=== PATIENT | female | born 1985 | race Caucasian/White ===

== ENCOUNTER → 2018-05-26 12:11 | Outpatient (CLI) | payer OTHER, SELFPAY ==
[2018-05-26 13:15] LABS: Follicle Stimulating Hormone 2.41 mIU/mL
[2018-05-26 13:16] LABS: Luteinizing Hormone 4.74 mIU/mL; Prolactin 17.3 ng/mL (3.0-18.6)
[2018-05-26 13:17] LABS: Free T3, Triiodothyronine Free 3.42 pg/mL (2.77-5.27); Free T4, Direct Thyroxine 1.13 ng/dL (0.78-2.19)
== END ==
PROVIDERS: PCP Physician Assistant Medical
DX: N97.0 Female infertility associated with anovulation (principal)
CPT/HCPCS: 36415; 83001; 83002; 84146; 84439; 84481

== ENCOUNTER → 2018-06-27 17:40 | Outpatient (REF) | payer OTHER, SELFPAY ==
[2018-06-30 17:22] LABS: Progesterone 9.6 ng/mL
== END ==
LOC: LAB 17:40
PROVIDERS: PCP Physician Assistant Medical; Visit Provider Physician Assistant Medical
DX: N97.0 Female infertility associated with anovulation (principal)
CPT/HCPCS: 36415; 84144

== ENCOUNTER → 2018-07-26 16:02 | Outpatient (CLI) | payer OTHER, SELFPAY ==
[2018-07-28 15:32] LABS: Progesterone 18.5 ng/mL
== END ==
PROVIDERS: PCP Physician Assistant Medical
DX: N97.0 Female infertility associated with anovulation (principal)
CPT/HCPCS: 36415; 84144

== ENCOUNTER → 2018-09-07 16:33 | Outpatient (CLI) | payer OTHER, SELFPAY ==
[2018-09-07 17:22] LABS: Add Manual Diff / Slide Review NO; Basophils Absolute Auto 100 /uL (0-100); Basophils Percent Auto 0.6 % (0-2); Eosinophils Absolute Auto 100 /uL (0-450); Eosinophils Percent Auto 0.7 % (2-4); Hematocrit 35.5 % (36-46); Lymphocytes Absolute Auto 2400 /uL (1100-4500); Lymphocytes Percent Auto 18.3 % (25-40); Mean Corpuscular HGB Conc 33.8 % (30-36); Mean Corpuscular Hemoglobin 29.4 PG (26-34); Monocytes Absolute Auto 600 /uL (0-900); Monocytes Percent Auto 4.7 % (3-14); Neutrophils Absolute Auto 10000 /uL (1500-7000); Neutrophils Percent Auto 75.7 % (50-75); Platelet Count 411 X10^3/uL (150-400); Red Blood Cell Count 4.08 X10^6/uL (4.0-5.2); Red Cell Distribution Width 12.6 % (11.6-14.8); White Blood Cell Count 13.3 X10^3/uL (4.5-11.0)
[2018-09-07 17:54] LABS: Appearance Urine UA CLEAR; Bilirubin Urine UA NEGATIVE (NEGATIVE); Color Urine UA YELLOW; Glucose Urine UA NEGATIVE (Negative); Ketones Urine UA NEGATIVE (NEGATIVE); Leukocyte Esterase Urine UA TRACE (NEGATIVE); Nitrite Urine UA NEGATIVE (Negative); Occult Blood Urine UA NEGATIVE (Negative); Protein Urine UA NEGATIVE (Negative); Urobilinogen Urine UA 0.2 E.U./dL (0.2)
[2018-09-07 18:03] LABS: RBC Urine None Seen (0-5/HPF)
[2018-09-07 18:05] LABS: Bacteria Urine Moderate (10-30); Squamous Epithelial Cell Urine 0-1 /HPF (0-5/HPF); WBC Urine 1-5/HPF (0-5/HPF)
[2018-09-07 18:28] LABS: Hepatitis B Surface Antigen NEGATIVE s/c (NEGATIVE)
[2018-09-07 18:29] LABS: HIV 1 and 2 Antibody NEGATIVE (NEGATIVE); Hep C Virus Ab w/Reflex Quant NEGATIVE s/c (NEGATIVE); Rubella Antibody IgG 9.9 IU/mL (>15)
[2018-09-07 19:23] LABS: Urine N gonorrhoeae NOT DETECTED
[2018-09-07 19:29] LABS: Urine Chlamydia NOT DETECTED
[2018-09-09 13:22] LABS: RPR Screen Nonreactive (Nonreactive)
== END ==
PROVIDERS: PCP Physician Assistant Medical; Visit Provider Specialist
DX: Z34.01 Encounter for supervision of normal first pregnancy, first trimester (principal); Z11.3 Encounter for screening for infections with a predominantly sexual mode of transmission; Z11.8 Encounter for screening for other infectious and parasitic diseases; Z3A.09 9 weeks gestation of pregnancy
CPT/HCPCS: 36415; 80055; 81003; 81015; 86703; 86787; 86803; 86850; 86900; 86901; 87086; 87491; 87591

== ENCOUNTER → 2018-11-01 09:02 | Outpatient (CLI) | payer OTHER, SELFPAY ==
[2018-11-06 12:47] LABS: AFP, Serum 36.4 ng/mL; Calc Gestational Age 17.3; Cigarette Smoker N; Donated Egg NOT GIVEN; Donor Egg Age NOT GIVEN; Estriol, Free 0.86 ng/mL; Inhibin A, Dimeric 191 pg/mL; Maternal Weight 156 lbs; Number of Fetuses 1; Previous Pregnancy Down Syndro NOT GIVEN; hCG, MoM 2.74
== END ==
PROVIDERS: Visit Provider Specialist
DX: Z34.02 Encounter for supervision of normal first pregnancy, second trimester (principal); Z3A.17 17 weeks gestation of pregnancy
CPT/HCPCS: 36415; 82105; 82677; 84702; 86336

== ENCOUNTER → 2018-11-20 14:46 | Outpatient (CLI) | payer OTHER, SELFPAY ==
--- NOTE | 2018-11-20 14:50 | DI.US.S_ITS ---
PROCEDURE: US OB >= 14 WEEKS FETUS INDICATIONS: ANATOMY SCAN OUTSIDE/PRIOR DATING DATA: Last menstrual period (LMP): 07/03/18. LMP-based estimated date of delivery (GRACE): 04/09/19. First dating scan (date and location): 09/07/18. Estimated date of delivery (GRACE) from first dating scan: 04/10/19. TECHNIQUE: Real-time scanning was performed of the fetus, with image documentation and biometric measurements. Endovaginal scanning: No COMPARISON: [facility], , OB >= 14 WEEKS FETUS, 11/01/2018, 8:53. FINDINGS: General: A single living intrauterine gestation is present. Presentation: Breech. Placenta: Placental position is anterior, without previa. Amniotic fluid index: 13.3 cm, normal range is 5-24 cm. heart rate: 145 beats per minute. Maternal cervical canal: 3.7 cm long. Normal lower limit is 2.5 cm biometrics: Biparietal diameter: 20 weeks 3 days Head circumference: 20 weeks 1 day Abdominal circumference: 20 weeks 5 days Femur length: 20 weeks 0 days Estimated gestational age from initial scan: 19 weeks 6 days Composite gestational age from present scan: 20 weeks 2 days Estimated weight and percentile: 347 g; 73 percentile Measurement variability for biometric dating: +/- 7 days from 14 weeks to 15 weeks 6 days gestation, +/- 10 days from 16 weeks to 21 weeks 6 days gestation, +/- 2 weeks from 22 weeks to 27 weeks 6 days gestation, +/- 3 weeks for 28 weeks gestation or later. weight reference: 4500 g or EFW >90/95% is considered macrosomia or large for gestational age. EFW <10% is small for gestational age. EFW 5% or less is considered intra-uterine growth restriction. Anatomic survey: Neuro: Ventricles are non-dilated at less than 10 mm. Cisterna magna is normal at 3-11 mm. Cerebellum is normal in size and morphology. Nuchal skin fold: Normal at less than 6 mm between 14-21 weeks gestational age. Face: Nose and lips, facial profile are normal. Spine: No evidence for spina bifida. Heart: 4-chambered heart is present, with normal ventricular outflow tracts. Diaphragm: Diaphragm is intact. Stomach: Left-sided stomach is present. Kidneys: No hydronephrosis. Normal is less than 5 mm in 2nd trimester, less than 7 mm in 3rd trimester. Cord: 3-vessel cord has orthotopic insertion. Bladder: Normal in size. Extremities: All 4 extremities identified. Posterior intramural maternal fibroid measuring 3.3 x 3.0 cm IMPRESSION: 1. Single living IUP redemonstrated and interval growth is normal. 2. Normal anatomic survey. 3. Mid posterior intramural maternal fibroid. Dictated by: Rene DURAN Interpreted: Loida Salcido MD on 11/20/2018 at 16:29 Approved by: Loida Salcido M.D. on 11/20/2018 at 17:04
== END ==
PROVIDERS: Visit Provider Specialist
DX: Z34.02 Encounter for supervision of normal first pregnancy, second trimester (principal); Z33.1 Pregnant state, incidental; Z3A.19 19 weeks gestation of pregnancy
CPT/HCPCS: 76811

== ENCOUNTER → 2018-12-21 11:08 | Outpatient (CLI) | payer OTHER, SELFPAY ==
[2018-12-21 12:29] LABS: Hematocrit 33.2 % (36-46); Hemoglobin 11.2 g/dL (12.0-16.0)
[2018-12-21 13:41] LABS: GTT (PREG) 1 Hour PP 50gm Dose 98 mg/dL (76-139)
== END ==
PROVIDERS: Visit Provider Specialist
DX: Z34.02 Encounter for supervision of normal first pregnancy, second trimester (principal); Z3A.24 24 weeks gestation of pregnancy
CPT/HCPCS: 82950; 85014; 85018

== ENCOUNTER → 2019-03-21 12:20 | Outpatient (CLI) | payer OTHER, SELFPAY ==
[2019-03-22 10:39] LABS: Strep Grp B PCR NEG for Grp B Strep
== END ==
PROVIDERS: Visit Provider Specialist
DX: Z34.03 Encounter for supervision of normal first pregnancy, third trimester (principal); Z3A.36 36 weeks gestation of pregnancy
CPT/HCPCS: 87653

== ENCOUNTER 2019-04-12 10:48 | Outpatient (CLI) | payer OTHER, SELFPAY ==
--- NOTE | 2019-04-12 11:12 | P.TNLD_ITS ---
Visit Information Visit Information Date of evaluation: 04/12/19 Primary OB Provider: Juanita Gunter Reason for Evaluation: Yes non-stress test non-stress test reason: other (Postdates) [facility] Social History (System 07/03/18 @ 10:18 by Doug Boucher) Smoking Status: Never smoker Evaluation Evaluation Baseline heart rate: 140 Variability: Moderate (11-25) monitor accelerations: Present monitor decelerations: Absent Contraction Frequency (minutes): 3 Uterine Contraction Intensity: Mild Category of Tracing: I Diagnosis, Plan/Disposition Final Diagnosis (1) 40 weeks gestation of : Current Visit: Yes Status: Acute Plan/Disposition Plan: Reactive nonstress test patient has an appointment and 4 days OB Disposition: home
== END 2019-04-12 11:28 | disposition home or self-care (01) ==
LOC: OB 04-13 11:58
PROVIDERS: Visit Provider Specialist
DX: O48.0 Post-term pregnancy (principal); O09.513 Supervision of elderly primigravida, third trimester; Z3A.40 40 weeks gestation of pregnancy
CPT/HCPCS: 59025; G0378; G0379

== ENCOUNTER 2019-04-16 11:10 | Outpatient (CLI) | payer OTHER, SELFPAY ==
--- NOTE | 2019-04-16 12:04 | PM.OBTRLD ---
Visit Information Visit Information Date of evaluation: 04/16/19 Primary OB Provider: Juanita Gunter Reason for Evaluation: Yes non-stress test non-stress test reason: other (Postdates) Vital Signs Vital Signs: Blood pressure 112/70, pulse of 83 PFSH Social History (System 07/03/18 @ 10:18 by Doug Boucher) Smoking Status: Never smoker Evaluation Evaluation Baseline heart rate: 130 Variability: Moderate (11-25) monitor accelerations: Present monitor decelerations: Absent Contraction Frequency (minutes): 5 Uterine Contraction Intensity: Mild Category of Tracing: I Diagnosis, Plan/Disposition Final Diagnosis (1) Post term , 41 weeks: Current Visit: Yes Status: Acute Plan/Disposition Plan: Reactive nonstress test. Patient is scheduled for induction in 2 days. OB Disposition: home
== END 2019-04-16 12:18 | disposition home or self-care (01) ==
LOC: OB 15:49
PROVIDERS: Visit Provider Specialist
DX: O48.0 Post-term pregnancy (principal); O09.513 Supervision of elderly primigravida, third trimester; Z3A.40 40 weeks gestation of pregnancy
CPT/HCPCS: 59025; G0378; G0379

== ENCOUNTER 2019-04-17 10:07 | Inpatient (IN) | payer OTHER, SELFPAY ==
--- NOTE | 2019-04-17 12:04 | P.HPOB_ITS ---
OB HPI Date/Time Date of admission: 04/17/19 Date Patient Seen: 04/17/19 Time Patient Seen: 12:04 History of Present Condition Chief complaint: labor : 1 Para: 0 Estimated Date of Delivery: 04/09/19 Estimated Gestational Age (weeks): 41 Narrative: Arminda Pedraza is a 34 year old female in active labor History of Present care: good care, initiated at week # (9), number of visits (14) and pounds weight gain (24) Dating criteria: LMP confirmed by 1st trimester US Ultrasounds: normal mid trimester US Obstetrical complications: none Medical complications: none Preadmission Labs Blood type: A (+) positive -: Antibody screen: negative, GBS status: negative, HBsAG: negative, HIV: negative and RPR/VDLR: negative -: Chlamydia screen: not detected and Gonorrhea screen: not detected -: Rubella: not immune and Varicella: immune HCAB: negative Quad screen: Normal 1 hr GTT: 98 Evaluation Evaluation Baseline heart rate: 140 Variability: Moderate (11-25) monitor accelerations: Present monitor decelerations: Absent Contraction Frequency (minutes): 5 Uterine Contraction Intensity: Moderate Category of Tracing: I Cervical dilation (cm): 5 Cervical effacement (%): 80 station: -1 [facility] Social History (System 07/03/18 @ 10:18 by Doug Boucher) Smoking Status: Never smoker Meds Home Medications and Allergies Home Medications Medication Instructions Recorded Confirmed Type vitamins no.121-iron 28 tab PO tab 05/26/18 09/07/18 History mg-folic acid 800 mcg tablet Allergies Allergy/AdvReac Type Severity Reaction Status Date / Time No Known Drug Allergies Allergy Unverified 07/18/18 13:34 Review of Systems Review of Systems Narrative: Patient denies headaches, scotomata, epigastric pain. Good movement. No rupture membranes. Contractions started increasing at 4:30 a.m. ROS Unobtainable: All systems reviewed & are unremarkable except as noted in HPI and below Exam Vital Signs (past 8 hours): Blood pressure 120/72, pulse of 85, temperature 97.8? Narrative Exam Narrative: HEENT exam within normal limits. Lungs are clear to auscultation percussion. Heart is regular rate and rhythm no S3-S4 or murmurs. Abdomen is gravid, nontender. Fetus is vertex. Extremities without edema and nontender. Assessment and Plan Assessment and Plan Assessment and Plan narrative: 41 week gestation in early labor. Anticipate vaginal delivery. Patient is rubella nonimmune she receive the rubella vaccine prior to discharge.
[2019-04-17 16:04] LABS: Add Manual Diff / Slide Review NO; Basophils Absolute Auto 100 /uL (0-100); Basophils Percent Auto 0.2 % (0-2); Eosinophils Absolute Auto 0 /uL (0-450); Eosinophils Percent Auto 0.1 % (2-4); Hematocrit 37.7 % (36-46); Hemoglobin 13.1 g/dL (12.0-16.0); Lymphocytes Absolute Auto 1300 /uL (1100-4500); Lymphocytes Percent Auto 5.4 % (25-40); Mean Corpuscular HGB Conc 34.8 % (30-36); Mean Corpuscular Hemoglobin 30.6 PG (26-34); Mean Corpuscular Volume 87.8 fL (80-100); Monocytes Absolute Auto 1300 /uL (0-900); Monocytes Percent Auto 5.4 % (3-14); Neutrophils Absolute Auto 21900 /uL (1500-7000); Neutrophils Percent Auto 88.9 % (50-75); Platelet Count 361 X10^3/uL (150-400); Red Blood Cell Count 4.29 X10^6/uL (4.0-5.2); Red Cell Distribution Width 13.3 % (11.6-14.8); White Blood Cell Count 24.7 X10^3/uL (4.5-11.0)
[2019-04-17] MEDS: ONDANSETRON 4 MG/2 ML INJ IV (16:24)
[2019-04-17 17:28] VITALS: BP 132/72
[2019-04-17] MEDS: LACTATED RINGERS 1,000 ML 100 ML IV ×2 (18:00→19:31)
[2019-04-17] MEDS: FENT 2MCG/ML BUPIV 0.125% EPI 200 MCG/100 ML PLAST..BAG 10 MCG EPIDURAL (18:45)
--- NOTE | 2019-04-17 23:37 | PM.OBPRVD ---
 Events: Meconium Stained Fluid (Thin initially with significant terminal meconium) Labor & Delivery Delivery date: 04/17/19 Intrapartal events: None Cervical ripening method: none Induction method: none Delivery monitor: external FHT and external uterine Route of delivery: L&D Laceration Description: Perineal - 2nd Degree and Labial (Left labia) Delivery repair: chromic (For 4 0 for the labial tear 3 0 for the perineal tear) Estimated blood loss (mL): 300 Anesthesia type: Epidural Narrative: Patient arrived on Labor and delivery in active labor. She received an epidural catheter for pain control. She was AROM when complete for thin meconium-stained fluid. She had a spontaneous vaginal delivery over an intact perineum. The viable female infant was placed on maternal abdomen. After the cord stopped pulsating the cord was clamped, cut, and cord bloods obtained. The placenta delivered spontaneously, intact, with 3 vessels. A right labial tear was repaired with 4 0 chromic suture and the second-degree midline perineal tear was repaired with 3 0 chromic suture in the usual 2 layer fashion. There were no cervical or vaginal tears. Both mother doing well. [place] Baby 1: gender: Female Presentation: vertex position: Right Occiput Anterior Placenta delivery description: Spontaneous cord vessel description: 3 Vessels score (1 min): 9 score (5 min): 9 Plan for aftercare: Routine care
[2019-04-18] MEDS: IBUPROFEN 600 MG TABLET PO ×4 (00:21→23:42)
[2019-04-18] MEDS: DERMOPLAST SPRAY 20% 60 ML 1 SPRAY TOP (00:22)
[2019-04-18] MEDS: LACTATED RINGERS 1,000 ML 100 ML IV (01:53)
[2019-04-18] MEDS: DOCUSATE 100 MG CAPSULE PO (09:28)
--- NOTE | 2019-04-18 13:08 | P.PNOB_ITS ---
Subjective - OB Subjective Patient comments: no complaints [place] baby status: doing well [place] feeding status: exclusively breast feeding Date Patient Seen: 04/18/19 Time Patient Seen: 13:08 Interval history: Patient is approximately 14 hours . She is urinating well. Ambulatory. Breast-feeding is improving after meeting with the cloud consultant. Her bleeding is appropriate. No headaches, scotomata, epigastric pain. Exam Narrative Exam Narrative: Abdomen is soft, nontender. Uterus is firm, at U, nontender. Extremities without edema and nontender. Objective Labs Result Diagrams: 04/17/19 15:45 Labs: Laboratory Results - last 24 hr 04/17/19 04/17/19 15:45 15:45 WBC 24.7 H RBC 4.29 Hgb 13.1 Hct 37.7 MCV 87.8 MCH 30.6 MCHC 34.8 RDW 13.3 Plt Count 361 Neut % (Auto) 88.9 H Lymph % (Auto) 5.4 L [place] % (Auto) 5.4 Eos % (Auto) 0.1 L Baso % (Auto) 0.2 Neut # (Auto) 73175 H Lymph # (Auto) 1300 [place] # (Auto) 1300 H Eos # (Auto) 0 Baso # (Auto) 100 Blood Type A Positive Antibody Screen Negative Assessment & Plan Assessment and Plan (1) Vaginal delivery: Status: Acute Assessment and plan: Normal exam. Routine care Current Visit: Yes Plan day: 1 plan OB: routine care Time Spent With Patient Time: Total time spent is greater than 50% in coordination of care (as documented) at patient's floor/unit and/or counseling patient: Time with patient: less than 15 minutes
[2019-04-18 13:29] LABS: Hematocrit 30.1 % (36-46); Hemoglobin 10.7 g/dL (12.0-16.0)
[2019-04-18] MEDS: LANOLIN OINT 7 GM 1 APPLIC TOP (15:38)
[2019-04-18] MEDS: ACETAMINOPHEN 325 MG TABLET 650 MG PO (23:42)
[2019-04-19] MEDS: IBUPROFEN 600 MG TABLET PO ×2 (05:38→13:03)
[2019-04-19] MEDS: ACETAMINOPHEN 325 MG TABLET 650 MG PO ×2 (05:39→13:04)
--- NOTE | 2019-04-19 09:37 | P.DS_ITS ---
Discharge Providers Provider Date of admission: 04/17/19 10:07 Discharge Date: 04/19/19 Consults: 04/17/19 15:26 Consult to Anesthesiology Urgent Comment: Consulting Provider: Anesthesiologist Reason for consultation: Epidural Has provider been notified: No 04/18/19 23:33 Consult to Behavioral Health Assistant Routine Comment: Discharge provider: Juanita Gunter MD Summary Hospital Course Date Patient Seen: 04/19/19 Time Patient Seen: 09:37 Procedures: Epidural catheter, spontaneous vaginal delivery, repair of second- degree tear Hospital Course: Patient arrived on Labor and delivery in active labor. She received an epidural catheter for pain control. heart tones category 1 to category 2 throughout labor. She had a spontaneous vaginal delivery of a viable female infant. A second-degree perineal tear was repaired. Patient was breast-feeding without difficulty, urinating and ambulating well. She denied any headaches, scotomata, epigastric pain. She was discharged Peripartum Data Delivery Method: Natural Vaginal Laceration description: Perineal - 2nd Degree Procedures: Epidural catheter, Spontaneous vaginal delivery, repair of second- degree tear. complications: none [place] 1: Gender: Female Disposition of : home Discharge Diagnosis (1) Vaginal delivery: Status: Acute Status at Discharge Functional status at discharge: independent ambulation Overall status at discharge: patient is progressing back to baseline Time Spent with Patient Time attestation: Total time spent providing and/or coordinating discharge services: Time spent: Less than 30 minutes Objective Labs Result Diagrams: 04/18/19 13:18 Labs: Laboratory Results - last 24 hr 04/18/19 13:18 Hgb 10.7 L Hct 30.1 L Exam Vital Signs (past 8 hours): Blood pressure 96/63, pulse of 95, temperature 98.7? Narrative Exam Narrative: Abdomen is soft, nontender. Uterus is firm, at U, nontender. Repair is intact. Mild lochia. Extremities without edema and nontender. Patient is a positive. She received the Tdap in 3rd trimester. She will receive the rubella vaccine prior to discharge Discharge Plan Discharge Plan Patient Disposition: Home Discharge orders & Medications Prescriptions: Continued PNV no.[id number] acid 28 mg iron- 800 mcg tablet PO RF: 0 Follow up/Referrals: Juanita Gunter MD [Physician] - 06/07/19 ( exam in [place] with Dr. Gunter at 11:15 with a 11:00 check in time on June 07, 2019. Please call if you have any questions/concerns or need to reschedule.) Diet/Activity/Treatments Diet: Regular Activity: Nothing in vagina for 6 weeks Skin/Wound/Dressing Care Report to your healthcare provider any signs of infection, such as:: chills, fever, increased pain and unusual redness Visit Report/Discharge Packet Stand Alone Forms: Discharge: Care
[2019-04-19] MEDS: DOCUSATE 100 MG CAPSULE PO (10:35)
[2019-04-19 11:43] VITALS: BP 96/63; PULSE 95; RESP 16; TEMP 37.1
[2019-04-19] MEDS: MEASLES,MUMPS,RUBELLA VACC/PF 0.5 ML VIAL SUBCUT (13:04)
== END 2019-04-19 12:25 | disposition home or self-care (01) | DRG 768 ==
PROVIDERS: Admitting Provider Specialist; Visit Provider Specialist
DX: O77.0 Labor and delivery complicated by meconium in amniotic fluid (principal); Z37.0 Single live birth; Z3A.41 41 weeks gestation of pregnancy; O70.1 Second degree perineal laceration during delivery
CPT/HCPCS: 01967; 36415; 59050; 59410; 85014; 85018; 85025; 86850; 86900; 86901; G0379; J2405

== ENCOUNTER → 2021-01-15 16:12 | Outpatient (CLI) | payer OTHER, SELFPAY ==
[2021-01-15 16:58] LABS: Add Manual Diff / Slide Review NO; Basophils Absolute Auto 100 /uL (0-100); Basophils Percent Auto 0.5 % (0-2); Eosinophils Absolute Auto 100 /uL (0-450); Eosinophils Percent Auto 0.6 % (2-4); Hemoglobin 11.7 g/dL (12.0-16.0); Lymphocytes Absolute Auto 2200 /uL (1100-4500); Lymphocytes Percent Auto 17.3 % (25-40); Mean Corpuscular HGB Conc 34.5 % (30-36); Mean Corpuscular Hemoglobin 29.8 PG (26-34); Mean Corpuscular Volume 86.5 fL (80-100); Monocytes Absolute Auto 700 /uL (0-900); Monocytes Percent Auto 5.5 % (3-14); Neutrophils Absolute Auto 9700 /uL (1500-7000); Neutrophils Percent Auto 76.1 % (50-75); Platelet Count 426 X10^3/uL (150-400); Red Blood Cell Count 3.93 X10^6/uL (4.0-5.2); White Blood Cell Count 12.7 X10^3/uL (4.5-11.0)
[2021-01-15 17:31] LABS: Appearance Urine UA CLEAR; Bilirubin Urine UA NEGATIVE (NEGATIVE); Color Urine UA YELLOW; Glucose Urine UA NEGATIVE (Negative); Ketones Urine UA NEGATIVE (NEGATIVE); Leukocyte Esterase Urine UA NEGATIVE (NEGATIVE); Nitrite Urine UA NEGATIVE (Negative); Occult Blood Urine UA NEGATIVE (Negative); Protein Urine UA NEGATIVE (Negative); Specific Gravity Urine UA 1.025 (1.000-1.035); Urobilinogen Urine UA 0.2 E.U./dL (0.2)
[2021-01-15 17:33] LABS: pH Urine UA 5.5 (4.5-8.0)
[2021-01-15 18:04] LABS: Hepatitis B Surface Antigen NEGATIVE s/c (NEGATIVE); Rubella Antibody IgG 32.3 IU/mL (>15)
[2021-01-15 18:21] LABS: HIV 1 & 2 Ab/Ag 4th Gen Combo NEGATIVE (NEGATIVE); Hep C Virus Ab w/Reflex Quant NEGATIVE s/c (NEGATIVE)
[2021-01-15 21:28] LABS: Urine N gonorrhoeae NOT DETECTED
[2021-01-15 21:48] LABS: Urine Chlamydia NOT DETECTED
[2021-01-16 07:28] LABS: RPR Screen Non Reactive (Non Reactive); Varicella IgG Antibody 536 index (Immune >165)
== END ==
PROVIDERS: Referring Provider Specialist; Visit Provider Specialist
DX: Z34.81 Encounter for supervision of other normal pregnancy, first trimester (principal); Z3A.09 9 weeks gestation of pregnancy
CPT/HCPCS: 36415; 80055; 81003; 86787; 86803; 86850; 86900; 86901; 87086; 87389; 87491; 87591

== ENCOUNTER → 2021-03-11 13:59 | Outpatient (CLI) | payer OTHER, SELFPAY ==
[2021-03-13 20:51] LABS: AFP, Serum 36.7 ng/mL (.); Calc Gestational Age Ultrasound (.); Estriol, Free 0.98 ng/mL (.); Inhibin A, Dimeric 95.92 pg/mL (.); Inhibin A, MoM 0.64 (.); Maternal Ethnicity Caucasian (.); Maternal Weight 161 lbs (.); Number of Fetuses No (.); OSBR Risk 1 IN 10000 (.); Results Report (.); Test Results *Screen Negative* (.); hCG, MoM 2.01 (.); hCG, Serum 58764 mIU/mL (.)
== END ==
PROVIDERS: Referring Provider Specialist; Visit Provider Specialist
DX: Z34.82 Encounter for supervision of other normal pregnancy, second trimester (principal); Z3A.17 17 weeks gestation of pregnancy
CPT/HCPCS: 36415; 82105; 82677; 84702; 86336

== ENCOUNTER → 2021-04-08 11:41 | Outpatient (CLI) | payer OTHER, SELFPAY ==
[2021-04-08 11:58] LABS: Specimen Label NATERA
== END ==
PROVIDERS: Referring Provider Specialist; Visit Provider Specialist
DX: O09.522 Supervision of elderly multigravida, second trimester (principal)
CPT/HCPCS: 36415

== ENCOUNTER 2021-04-11 16:31 | Emergency (ER) | payer OTHER, SELFPAY ==
[2021-04-11 16:40] VITALS: BP 107/58; PULSE 88; RESP 22; TEMP 36.2; O2SAT 100; BMI 24.2
[2021-04-11 17:21] LABS: COVID19 -Nasal RAPID Negative (Negative)
[2021-04-11 20:51] VITALS: O2SAT 96
[2021-04-11 20:52] VITALS: BP 120/58; PULSE 86; O2SAT 98
[2021-04-11] MEDS: ACETAMINOPHEN 325 MG TABLET 650 MG PO (21:22)
--- NOTE | 2021-04-11 22:14 | ED.HA ---
HPI - Headache General Chief Complaint: Headache Stated Complaint: HEADACHE 7+DAYS Time Seen by Provider: 04/11/21 22:14 Source: patient Mode of arrival: Family Vehicle Limitations: no limitations History of Present Illness HPI Narrative: This is a 36-year-old female comes emergency department complaint headache. She states she has had migraines in the past but they typically come on quickly. She is 22 weeks . She is a . 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 She has been having some symptoms of restless leg and joint laxity but denies persistent headaches throughout her . Patient states she is taking a vitamin. She does try Tylenol for her headaches which are helpful for 4-6 hours but then seemed to wear out. She has had headache for a week that is worse with movement such as bending over, like flat, rolling [id number] but is typically low level and persistent. It gradually came on. She is mostly concerned because she is unsure what to take during her that is safe. She does live in [place]. She denies prior surgeries. No known drug allergies. No tobacco, alcohol or illicit. Dr. Gunter is her OBGYN Related Data Home Medications Medication Instructions Recorded Confirmed vitamins no.121-iron 28 tab PO tab 05/26/18 04/01/21 mg-folic acid 800 mcg tablet Previous Rx's Medication Instructions Recorded metoclopramide HCl 10 mg tablet 10 mg PO Q6H PRN #10 tab 04/12/21 (Reglan) Allergies Allergy/AdvReac Type Severity Reaction Status Date / Time No Known Drug Allergies Allergy Verified 04/11/21 16:46 Review of Systems Review of Systems ROS Unobtainable: All systems reviewed & are unremarkable except as noted in HPI and below Patient History Medical History Anemia (~2001) Hemorrhoid (~2019) Ingrown toenail (~2000) Migraines (~2011) Orthostatic hypotension (~2001) Plantar warts (~2008) Post term , 41 weeks Vaginal delivery Surgical History Anesthesia History of adenoidectomy (~2001) Surgical procedure planned (~04/2019) [place] teeth removed (~1999) Family History Mother History of varicose veins Skin cancer Atrial fibrillation Depression Grandfather Colon cancer Depression Grandmother Skin cancer Congestive heart failure Grandfather Congestive heart failure Grandmother Alzheimer's disease Father Family history unknown Social History marital status: number of children: 1 household members: spouse and children lives independently: Yes caregiver/support person: No housing: house pets and animals: Yes (2 cats, 2 dogs: aware.) 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 ) substance use type: does not use during the past year weight has: remained stable well-balanced diet: daily or most days daily servings fruits/ve-4 caffeine: No (Quit w . ) Type(s) of exercise: walking (1.5-2 miles daily ) and normal ROM and activity frequency: daily duration: 30-45 minutes/day Smoking Status: Never smoker alcohol intake frequency: 0-2 drinks per day Substance Use Type: does not use Exam Narrative Exam Narrative: GEN: well nourished, well appearing female, alert and oriented x 3, patient appears to be in mild distress. HEENT: Atraumatic, pupils are equal round reactive to light, extraocular movements are intact, nares are clear, TMs are clear with no fluid, there is no conjunctival pallor. Throat is clear without any exudates, erythema, tonsillar enlargement or uvular deviation HEART: Regular rate and rhythm without murmur, clicks, rubs. LUNGS:Lungs clear to auscultation, no wheezes, rales, crackles, chest moves symmetrically ABD:bowel sounds normal, soft, non-tender, no guarding, rebound, rigidity, no masses noted, no hepatosplenomegaly :No CVA tenderness, gravid. Age appropriate for dates. MSCL: Non-tender, no muscle atrophy, muscles strength 5/5 upper and lower extremities, full range of motion, normal gait NEURO:CN 2-12 intact, sensation normal SKIN: No rash, erythema or other skin changes. Initial Vital Signs Initial Vital Signs: Vital Signs Temperature 97.1 F L 04/11/21 16:40 Pulse Rate 88 04/11/21 16:40 Respiratory Rate 22 04/11/21 16:40 Blood Pressure 107/58 L 04/11/21 16:40 Pulse Oximetry 100 04/11/21 16:40 Course Orders Ordered: ED Orders 04/11/21 22:35 BMP [Basic Metabolic Panel] Stat CBC Auto Diff [Complete Blood Count AUTO DIFF] Stat Discontinued Medications Acetaminophen (Acetaminophen 325 Mg Tablet) 650 mg PO NOW ONE Stop: 04/11/21 21:10 Last Admin: 04/11/21 21:22 Dose: 650 mg Documented by: JODIE Sodium Chloride (Normal Saline 0.9%) 1,000 mls @ 1,000 mls/hr IV BOLUS ONE Stop: 04/11/21 23:23 Last Admin: 04/11/21 22:41 Dose: 1,000 mls/hr Documented by: JODIE Metoclopramide HCl (Metoclopramide 10 Mg/2 Ml Inj) 10 mg IV NOW ONE Stop: 04/11/21 22:25 Last Admin: 04/11/21 22:42 Dose: 10 mg Documented by: JODIE Reevaluation(s) Reevaluation #1: Patient is much more comfortable after Reglan and fluids. Reviewed her labs and findings today. All questions were answered. Vital Signs Vital signs: Vital Signs - 8 hr 04/11/21 20:51 04/11/21 20:52 04/12/21 00:18 Pulse Rate 86 81 Respiratory Rate 20 Blood Pressure 120/58 L 98/54 L Pulse Oximetry 96 98 96 MDM - Headache Lab Data Result diagrams: 04/11/21 22:35 04/11/21 22:35 Labs: Lab Results 04/11/21 04/11/21 04/11/21 Range/Units 16:42 22:35 22:35 WBC 12.4 H (4.5-11.0) X10^3/uL RBC 3.59 L (4.0-5.2) X10^6/uL Hgb 10.6 L (12.0-16.0) g/dL Hct 30.9 L (36-46) % MCV 86.0 (80-100) fL MCH 29.6 (26-34) PG MCHC 34.4 (30-36) % RDW 12.6 (11.6-14.8) % Plt Count 382 (150-400) X10^3/uL Neut % (Auto) 77.6 H (50-75) % Lymph % (Auto) 13.8 L (25-40) % [place] % (Auto) 7.4 (3-14) % Eos % (Auto) 1.0 L (2-4) % Baso % (Auto) 0.2 (0-2) % Neut # (Auto) 9600 H (4668-6464) /uL Lymph # (Auto) 1700 (0379-5780) /uL [place] # (Auto) 900 (0-900) /uL Eos # (Auto) 100 (0-450) /uL Baso # (Auto) 0 (0-100) /uL Sodium 132 L (137-145) mmol/L Potassium 3.6 (3.4-5.1) mmol/L Chloride 105 (98-107) mmol/L Carbon Dioxide 24 (22-32) mmol/L BUN 8 (7-17) mg/dL Creatinine 0.39 L (0.52-1.04) mg/dL Estimated GFR > 60.0 (>60) mL/min BUN/Creatinine Ratio 20.5 (6-22) Glucose 89 (70-100) mg/dL Calcium 9.6 (8.4-10.2) mg/dL SARS-CoV-2 (PCR) Negative (Negative) Urine Dip Bedside Urine Glucose Negative Bedside Urine Bilirubin - Negative Bedside Urine Ketone - Negative Urine Specific [place] 1.015 Bedside Urine Occult Blood - Negative Bedside Urine pH 6.0 Bedside Urine Protein - Negative Bedside Urine Urobilinogen - Negative Bedside Urine Nitrite - Negative Bedside Urine Leukocytes - Negative Esterase MDM Narrative Medical decision making narrative: This is a 36-year-old female at [address] Gunter who comes in with a headache for the past 7 days which was gradual onset and has been persistent and worsened by change of position. Patient has been limited in what is available to her for symptom control she does find Tylenol helpful but wears off after 4-6 hours and her headache returns. Patient has not been hypertensive, labs show no anemia which appears appropriate patient does note she has not been taking any iron with her multivitamin. She does have a history of migraines although this pattern is different from her typical. She does find improvement with Tylenol and Reglan was quite helpful this evening. She has been anxious about what options are available for symptom control. Electrolytes show mild hyponatremia, normal glucose. Patient has not had an abrupt onset, thunderclap headache or other high-risk findings. She was concerned she has a 2 vessel cord feel her tones were recorded at 140s range. Discharge Plan Departure Patient Disposition: Home Clinical Impression: Headache Instructions: DI for Headache Activity Restrictions/Additional Instructions: Follow-up with Dr. Gunter for recheck. Your labs do show your hemoglobin is a little low at 10.6. Your sodium is also slightly low at 132 but her electrolytes and renal function are normal. Your blood sugar is also normal. COVID swab is negative today but if you have new changes to your symptoms or are still concerns you may repeat it in 2-3 days. The medication you are given today Reglan, you may take this medication to every 6 hours as needed for nausea and/or headache/migraine. Prescription sent to the pharmacy in Tuesday. For fevers, worsening headaches, new vision changes, rapidly worsening symptoms, persistent vomiting, new numbness, tingling or weakness, confusion or other new or concerning symptoms. Prescriptions: New metoclopramide HCl [Reglan] 10 mg tablet 10 mg PO Q6H PRN (Reason: nausea and vomiting) Qty: 10 0RF No Action PNV no.[id number] acid 28 mg iron- 800 mcg tablet PO 0RF Referrals: Juanita Gunter MD [Primary Care Provider] -
[2021-04-11] MEDS: SODIUM CHLORIDE 0.9% 1,000 ML 1000 ML IV (22:41)
[2021-04-11] MEDS: METOCLOPRAMIDE 10 MG/2 ML INJ IV (22:42)
[2021-04-11 22:52] LABS: Add Manual Diff / Slide Review NO; Basophils Absolute Auto 0 /uL (0-100); Basophils Percent Auto 0.2 % (0-2); Eosinophils Absolute Auto 100 /uL (0-450); Hematocrit 30.9 % (36-46); Hemoglobin 10.6 g/dL (12.0-16.0); Lymphocytes Absolute Auto 1700 /uL (1100-4500); Lymphocytes Percent Auto 13.8 % (25-40); Mean Corpuscular HGB Conc 34.4 % (30-36); Mean Corpuscular Hemoglobin 29.6 PG (26-34); Monocytes Absolute Auto 900 /uL (0-900); Monocytes Percent Auto 7.4 % (3-14); Neutrophils Absolute Auto 9600 /uL (1500-7000); Neutrophils Percent Auto 77.6 % (50-75); Platelet Count 382 X10^3/uL (150-400); Red Blood Cell Count 3.59 X10^6/uL (4.0-5.2); Red Cell Distribution Width 12.6 % (11.6-14.8); White Blood Cell Count 12.4 X10^3/uL (4.5-11.0)
[2021-04-11 22:53] LABS: BUN Creatinine Ratio 20.5 (6-22); Blood Urea Nitrogen 8 mg/dL (7-17); Calcium 9.6 mg/dL (8.4-10.2); Carbon Dioxide 24 mmol/L (22-32); Chloride 105 mmol/L (98-107); Estimated Glomerular Filt Rate > 60.0 mL/min (>60); Glucose 89 mg/dL (70-100); HEMOLYSIS < 15 (0-50); Potassium 3.6 mmol/L (3.4-5.1); Sodium 132 mmol/L (137-145)
[2021-04-12 00:18] VITALS: BP 98/54; PULSE 81; RESP 20; O2SAT 96
== END 2021-04-12 00:20 | disposition home or self-care (01) ==
PROVIDERS: Emergency Medicine; Emergency Provider Emergency Medicine; PCP Specialist
DX: O26.892 Other specified pregnancy related conditions, second trimester (principal); R51.9 Headache, unspecified; Z3A.22 22 weeks gestation of pregnancy; Z20.822 Contact with and (suspected) exposure to COVID-19
CPT/HCPCS: 36415; 80048; 81003; 85025; 87635; 96361; 96374; 99284; C9803; J2765

== ENCOUNTER 2021-07-15 17:13 | Inpatient (IN) | payer OTHER, SELFPAY ==
--- NOTE | 2021-07-15 17:38 | P.HPOB_ITS ---
OB HPI Date/Time Date of admission: 07/15/21 Date Patient Seen: 07/15/21 Time Patient Seen: 17:38 History of Present Condition Chief complaint: DEMISE : 2 Para: 1 Estimated Date of Delivery: 07/16/21 Estimated Gestational Age (weeks): 35 Narrative: Arminda Pedraza is a 36 year old female admitted for induction for IUFD dicovered at routine OB visit earlier today Indications Indication for induction OB: other (IUFD) History of Present care: good care, initiated at week # (9), number of visits (8) and pounds weight gain (16) Dating criteria: LMP confirmed by 1st trimester US Ultrasounds: abnormal US findings (2 vessel cord. US 3/) Abnormal ultrasound findings: 07/08/21 US SHELBI 24, 2 week lag AC otherwise normal Obstetrical complications: none Medical complications: none Preadmission Labs Blood type: A (+) positive -: Antibody screen: negative, HBsAG: negative, HIV: negative and RPR/VDLR: negative -: Chlamydia screen: not detected and Gonorrhea screen: not detected -: Rubella: immune and Varicella: immune HCAB: negative Cell-free DNA: normal male 1 hr GTT: 93 Prior (ies) History: 04/17/2019 41 week female 7 lb 6 oz Evaluation Evaluation Baseline heart rate: 0 Contraction Frequency (minutes): 0 Dilation (cm): 0 Effacement (%): 0 station: -3 [facility], [facility] Medical History Anemia (~2001) Hemorrhoid (~2019) Ingrown toenail (~2000) Migraines (~2011) Orthostatic hypotension (~2001) Plantar warts (~2008) Post term , 41 weeks Vaginal delivery Surgical History Anesthesia History of adenoidectomy (~2001) Surgical procedure planned (~04/2019) [place] teeth removed (~1999) Family History Mother History of varicose veins Skin cancer Atrial fibrillation Depression Grandfather Colon cancer Depression Grandmother Skin cancer Congestive heart failure Grandfather Congestive heart failure Grandmother Alzheimer's disease Father Family history unknown Social History marital status: number of children: 1 household members: spouse and children lives independently: Yes caregiver/support person: No housing: house pets and animals: Yes (2 cats, 2 dogs: aware.) 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 ) substance use type: does not use during the past year weight has: remained stable well-balanced diet: daily or most days daily servings fruits/ve-4 caffeine: No (Quit w . ) Type(s) of exercise: walking (1.5-2 miles daily ) and normal ROM and activity frequency: daily duration: 30-45 minutes/day Meds Home Medications and Allergies Home Medications Medication Instructions Recorded Confirmed Type vitamins no.121-iron 28 tab PO tab 05/26/18 06/17/21 History mg-folic acid 800 mcg tablet metoclopramide HCl 10 mg tablet 10 mg PO Q6H PRN #10 tab 04/12/21 06/17/21 Rx (Reglan) Allergies Allergy/AdvReac Type Severity Reaction Status Date / Time No Known Drug Allergies Allergy Verified 06/17/21 10:48 Review of Systems Review of Systems Narrative: Patient denies any headaches, scotomata, epigastric pain. No abdominal pain. No better no bleeding. Patient had felt what she is soon was baby movement earlier today prior to the visit where there was no heartbeat seen. No leakage of fluid. OB Exam Narrative Exam Narrative: HEENT exam within normal limits. Lungs are clear to auscultation percussion. Heart is regular rate and rhythm no S3-S4 murmurs. Abdomen is soft, nontender. Abdomen is gravid. Fetus is vertex. Extremities without edema and nontender. Assessment and Plan Assessment and Plan Assessment and Plan narrative: 35 week gestation with intrauterine demise for induction
[2021-07-15 18:54] LABS: COVID19 -Nasal RAPID Negative (Negative)
[2021-07-15 19:27] VITALS: BP 104/58
[2021-07-15] MEDS: miSOPROStoL 25 MCG TABLET VAG (19:56)
[2021-07-15 20:15] LABS: Add Manual Diff / Slide Review NO; Basophils Absolute Auto 0 /uL (0-100); Basophils Percent Auto 0.2 % (0-2); Eosinophils Absolute Auto 100 /uL (0-450); Eosinophils Percent Auto 0.5 % (2-4); Hematocrit 33.1 % (36-46); Hemoglobin 11.4 g/dL (12.0-16.0); Lymphocytes Absolute Auto 2100 /uL (1100-4500); Lymphocytes Percent Auto 12.1 % (25-40); Mean Corpuscular HGB Conc 34.4 % (30-36); Mean Corpuscular Hemoglobin 29.9 PG (26-34); Mean Corpuscular Volume 86.9 fL (80-100); Monocytes Absolute Auto 1000 /uL (0-900); Monocytes Percent Auto 5.9 % (3-14); Neutrophils Absolute Auto 14200 /uL (1500-7000); Neutrophils Percent Auto 81.3 % (50-75); Platelet Count 333 X10^3/uL (150-400); Red Blood Cell Count 3.81 X10^6/uL (4.0-5.2); Red Cell Distribution Width 13.3 % (11.6-14.8); White Blood Cell Count 17.5 X10^3/uL (4.5-11.0)
[2021-07-16] MEDS: miSOPROStoL 25 MCG TABLET VAG ×2 (00:12→04:19)
[2021-07-16] MEDS: LACTATED RINGERS 1,000 ML 100 ML IV (09:34)
[2021-07-16] MEDS: OXYTOCIN PREMIX 30 UNIT/500 ML PLAST..BAG IV (09:39)
--- NOTE | 2021-07-16 09:53 | PM.OBPNLAB ---
Date/Time Date Patient Seen: 07/16/21 Time Patient Seen: 07:45 Pain Control Pain control: tolerating well Pelvic Exam Dilation (cm): 1 Effacement (%): 50 station: -3 Amniotic membrane status: Ruptured (AROM for slight meconium fluid) Contractions Contractions on admission: irregular Monitor mode: Palpation Contraction intensity: Mild Assessment and Plan Assessment: induction ongoing Plan: begin patient augmentation
--- NOTE | 2021-07-16 12:04 | PM.AN.REGBLK ---
Regional Block Pre-procedure Procedure: Continuous Lumbar Epidural for L&D Attending OB provider: Juanita Gunter PMH/ROS narrative: at 35 weeks EGA with IUFD, now in for induction. No prior complications with , no active medical conditions. ASA Class: II Labs: Hct 33.1 % (36-46) L 07/15/21 18:45 Plt Count 333 X10^3/uL (150-400) 07/15/21 18:45 Medications: Current Medications Generic Name Dose Route Start Last Admin Trade Name Freq PRN Reason Stop Dose Admin Calcium Carbonate 1,000 mg 07/15/21 17:53 Calcium Carbonate 500 Mg Tab PO Q2HR PRN Dyspepsia Carboprost Tromethamine 250 mcg 07/15/21 17:53 Carboprost 250 Mcg/Ml Ampul IM Q90M PRN Bleeding Fentanyl 100 mcg 07/15/21 17:53 Fentanyl 100 Mcg/2 Ml Inj IV Q1H PRN Pain, Severe (7-10) Lactated Ringer's 1,000 mls @ 100 mls/hr 07/15/21 18:00 07/16/21 09:34 Lactated Ringers IV 100 mls/hr CONT ERNA Administration Oxytocin/Lactated Ringer's 30 unit in 500 mls @ 200 mls/hr 07/15/21 17:53 Oxytocin Premix IV CONT PRN Bleeding Protocol Tranexamic Acid 1,000 mg/ 100 mls @ 200 mls/hr 07/15/21 17:53 Sodium Chloride IV NOW PRN Bleeding Oxytocin/Lactated Ringer's 30 unit in 500 mls @ 1 mls/hr 07/16/21 09:20 07/16/21 09:39 Oxytocin Premix IV 3 milliunit/min TITRATE ERNA 3 mls/hr Administration Protocol 1 MILLIUNIT/MIN Oxytocin/Lactated Ringer's 30 unit in 500 mls @ 3 mls/hr 07/16/21 09:53 Oxytocin Premix IV TITRATE ERNA Protocol 3 MILLIUNIT/MIN Methylergonovine Maleate 0.2 mg 07/15/21 17:53 Methylergonovine 0.2 Mg Tablet PO Q6HR PRN Heavy Bleeding Methylergonovine Maleate 0.2 mg 07/15/21 17:53 Methylergonovine 0.2 Mg/Ml Vial IM NOW PRN Bleeding Misoprostol 1,000 mcg 07/15/21 17:53 Misoprostol 200 Mcg Tablet OR NOW PRN Bleeding Misoprostol 400 mcg 07/15/21 17:53 Misoprostol 200 Mcg Tablet SL NOW PRN Bleeding Misoprostol 800 mcg 07/15/21 17:53 Misoprostol 200 Mcg Tablet OR NOW PRN Bleeding Misoprostol 25 mcg 07/15/21 19:45 07/16/21 04:19 Misoprostol 25 Mcg Tablet VAG 25 mcg Q4HR ERNA Administration Naloxone HCl 0.2 mg 07/15/21 17:53 Naloxone 0.4 Mg/Ml Vial IV Q2MIN PRN Opiate Reversal Ondansetron HCl 4 mg 07/15/21 17:53 Ondansetron 4 Mg/2 Ml Inj IV Q4HR PRN Nausea And Vomiting Oxytocin 10 unit 07/15/21 17:53 Oxytocin 10 Unit/Ml Vial IM NOW PRN Bleeding Zolpidem Tartrate 5 mg 07/15/21 17:36 Zolpidem 5 Mg Tablet PO BEDTIME PRN Sleep Allergies: Allergies Allergy/AdvReac Type Severity Reaction Status Date / Time No Known Drug Allergies Allergy Verified 06/17/21 10:48 Procedure Insertion date: 07/16/21 Insertion time: 12:25 Prep/Local: betadine x3 and 1% lidocaine Interspace: L3-4 Patient position: sitting Needle: 18 gauge Hustead (CSE: 27g Pencan through Hustead, clear CSF, 1mL 0.25% bupiv MPF) Loss of resistance with: saline MASHA at (cm): 4 Catheter placed at SKIN (cm): 9 Catheter in SPACE (cm): 5 Insertion: No CSF, No Blood, No Paresthesia with insertion, No Paresthesia with injection and No Test dose reaction Initial Medications TEST DOSE: 1.5% lidocaine with epinephrine 1:200k (mL): 3 BOLUS DOSE time: 12:43 BOLUS DOSE (mL): 5 BOLUS DOSE med: other (infusate) Infusion INFUSION: 0.125% bupivacaine and with fentanyl 2 mcg/mL Initial rate (mL/hr): 8 Subsequent interventions: PCEA 8mL/h with 5mL bolus. 14:35 5mL 0.25% bupiv and 50mcg fentanyl (wasted 50mcg) Post-procedure Anesthesia time START: 12:18 Anesthesia time END: 15:39 Post-procedure Anesthesia Assessment: Yes CV function: HR/BP stable, Yes Resp function: RR/sat/airway adequate, Yes Mental status appropriate and No Anesthesia complications
[2021-07-16] MEDS: FENT 2MCG/ML BUPIV 0.125% EPI 200 MCG/100 ML PLAST..BAG 8 MCG EPIDURAL (12:44)
[2021-07-16] MEDS: ONDANSETRON 4 MG/2 ML INJ IV (14:57)
[2021-07-16] MEDS: fentaNYL 100 MCG/2 ML INJ IV (15:03)
--- NOTE | 2021-07-16 16:15 | PATH_ITS ---
[facility] Accession Number: [id number] . 01 Material submitted: . placenta - PLACENTA, DEMISE . 02 Diagnosis: Placenta, 35 weeks, 383 grams: 1. Gross and microscopic changes consistent with demise. 2. Two vessel cord, without funisitis. Please see comment. 3. 50th percentile by weight. 4. Mature chorionic villi. 5. membranes with no evidence of chorioamnionitis. [facility] 07/29/2021 1125 Local . 02 Comment: Single umbilical artery is associated with an increased risk of congenital anomalies (30-44.7% in some studies). . Per report, the fetus showed maceration (skin sloughing) and dark staining of skin, consistent with demise. Absent formation of right ear was also noted. However the fetus was not available for pathologic examination. Microtia/anotia (absence of external ear structures) has been reported in conjunction with numerous genetic syndromes and associations (ie. CHARGE, VACTERL). . Clinical correlation is recommended to determine if chromosomal studies would be helpful for evaluating the presence of chromosomal abnormalties. . 02 Electronically signed: . Belkis Keller MD, Pathologist NPI- [id number] . 01 Gross description: . The specimen is received in formalin and labeled placenta, is a 383 gram, 19.5 x 15.3 x 4.1 cm guillen placenta. The umbilical cord is eccentrically inserted, and is attached to the adjacent membranes and surface (7.0 cm in length insertion). The umbilical cord is diffusely edematous, dusky at the distal aspect, and only two vessels are identified grossly. The umbilical cord measures 35.4 cm in length x 1.2 - 2.0 cm in diameter. The membranes are marginally inserted and are yellow to lee-jiménez and semi-translucent. The surface is lee-jiménez and moderately trabeculated. The vessels appear grossly unremarkable. Minimal subchorionic fibrin is identified grossly. The cotyledons are grossly disrupted, with adherent clotted blood involving approximately 25 percent of the maternal surface. Sectioning reveals red-brown spongy parenchymal cut surfaces, and 10 percent of the peripheral cut surfaces are suspicious for infarct. No intervillous thrombi or calcifications are identified grossly. The adherent clotted blood does not appear to indent the maternal surface. . Also, received in the specimen container is a solid portion of jiménez to hemorrhagic tissue (146 grams, 9.0 x 8.0 x 5.0 cm). Sectioning the separate tissue reveals pale jiménez to hemorrhagic cut surfaces. The specimen is representatively submitted as follows: . A1: Umbilical cord. A2: Membranes. A3-A4: Full thickness rep of placenta, bisected. A5-A6: Rep of separate portion of tissue, bisected. ([id number]) A7-A9: Additional community health program representative sections of peripheral placenta supicious for infarct. A10-A11: Additional community health program representative sections of maternal surface with adherent hemorrhagic material. (AM:[id number]) /[facility] 07/29/2021 1152 Local . 02 Microscopic: . The umbilical cord has two vessels without funisitis, confirmed by gram stain and PAS stain. There is mild degeneration of the Garrard's jelly. The membranes are without chorioamnionitis, confirmed by gram and PAS stains. No pigment laden macrophages are identified, confirmed by iron stain. The chorionic villi are mature, without infarcts or intravillous thrombi, consistent with gestational age. There is no massive fibrin deposition in the intervillous space. There are patchy regions of intermediate villi with mild edema, increased karyorrhectic debris, and increased nucleated red blood cells. No chronic or acute villitis is identified. No obvious viral cytopathic effects are identified, and an immunohistochemical stain for CMV antigen is negative. There is no acute atherosis or fibrinoid necrosis of the decidual vessels. The adherent clotted blood on the maternal surface shows no lines of Madeline, and does not compress the placenta. . Special stains and immunohistochemistry were performed to assist in histologic evaluation. . RESULTS: PAS (A1): Negative for fungal organisms. Tissue Gram stain (A1): Negative. Iron stain (A2): Negative. Tissue Gram Stain (A3): Negative. CMV IHC (A3): Negative. . INTERPRETATION: There is no evidence of fungal or bacterial infectious organisms, and no evidence of CMV antigen by immunohistochemistry. An iron stain is negative for iron containing macrophages in membranes. . * This test was developed and its performance characteristics determined by [facility]. It has not been cleared or approved by the U.S. Food and Drug Administration. The FDA has determined that such clearance or approval is not necessary. This test is used for clinical purposes. It should not be regarded as investigational or for research. . 02 Pathologist provided ICD-10: O36.4XX1 . 02 CPT . 437386, 845649, 062228, 189558, [id number] Specimen Comment: A courtesy copy of this report has been sent to [phone] Performed at: 01 [facility] [address] [place] [address], [place], [place] [id number] [address] Mcguire MD Phone: [phone] Performed at: 02 [facility] [place] [address] [address] [place] [id number] MD Belkis Keller MD Phone: [phone]
--- NOTE | 2021-07-16 16:25 | P.PCNOB_ITS ---
Events: Other (Intrauterine demise) Labor & Delivery Delivery date: 07/16/21 Cervical ripening method: per misoprostal protocol Induction method: per pitocin protocol Delivery augmentation: rupture of membranes Delivery monitor: none Route of delivery: L&D Laceration Description: None Estimated blood loss (mL): 200 Anesthesia Type: Epidural Narrative: Patient arrived on Labor and delivery for induction for intrauterine demise found at routine OB appointment. Patient had noticed decreased kicking but thought she was feeling baby roll the week prior to her visit. Patient noted the same rolling sensation during her induction prior to rupture membranes when she changed position. This suggest demise as much as a week ago. The patient had 3 doses of Cytotec throughout the night. She was found to be 1 cm dilated 50% effaced in the morning and so was AROMed for thin meconium stained fluid. Pitocin was begun. She received an epidural catheter for pain control. The patient progressed rapidly to complete and +2 station. She delivered the baby with 2 pushes. The cord was clamped and baby wrapped and handed to the father. With traction on the umbilical cord prior to delivery of the placenta a large 10 x 10 cm solid, old appearing, clot (with the appearance of a marble) delivered. The rest of the placenta delivered. The placenta was small, possibility of an edge of abruption but otherwise intact. The amniotic fluid and placenta had an infected smell. Culture was obtained between the placenta and the amnion. There were no cervical, vaginal, or perineal tears. Bleeding was minimal. Patient declines autopsy. Placenta will be sent to pathology. Baby 1: gender: Male Presentation: vertex Placenta delivery description: Spontaneous Cord Vessel Description: 2 Vessels score (1 min): 0 score (5 min): 0 score (10 min): 0 weight: 5 lb 5 oz Narrative: Male infant delivered. No evidence of cord accident. Skin sloughing greater t jimenez 15% of the body. Dark staining of the skin, placenta, cord. Absent right ear formation. Plan for aftercare: Routine care (Due to the foul smell, 1 dose of IV antibiotics, ampicillin sulbactam, will be given)
[2021-07-16] MEDS: AMPICILLIN/SULBACTAM 3 GM 3 GM in SODIUM CHLORIDE 0.9% 100 ML IV (17:40)
[2021-07-16] MEDS: ACETAMINOPHEN 325 MG TABLET 650 MG PO (21:06)
[2021-07-16] MEDS: IBUPROFEN 600 MG TABLET PO (21:07)
[2021-07-17] MEDS: IBUPROFEN 600 MG TABLET PO ×2 (03:18→08:41)
[2021-07-17] MEDS: ACETAMINOPHEN 325 MG TABLET 650 MG PO ×2 (03:18→08:41)
--- NOTE | 2021-07-17 07:50 | PM.OBDS.1 ---
Discharge Providers Provider Date of admission: 07/15/21 17:13 Discharge Date: 07/17/21 Primary care physician: Juanita Gunter MD Consults: 07/15/21 17:53 Consult to Anesthesiology Urgent Comment: Consulting Provider: Anesthesiologist Reason for consultation: Epidural Has provider been notified: No Discharge provider: Juanita Gunter MD Summary Hospital Course Date Patient Seen: 07/17/21 Time Patient Seen: 07:50 Diagnoses: 35 week intrauterine demise Hospital Course: Patient was admitted after discovery of intrauterine demise at routine OB appointment. She underwent Prostin followed by Pitocin induction. She delivered spontaneously a nonviable male infant. she is urinating and ambulating well. No fevers. Mild lochia. She is appropriately sad. Peripartum Data Infant Delivery Method: Natural Vaginal Laceration Description: None Procedures: Prostin and Pitocin induction, epidural catheter, with spontaneous vaginal delivery complications: none 1: Gender: Male Disposition of : Discharge Diagnosis (1) Vaginal delivery: Status: Acute Problem Details: 35 week demise (2) demise in guillen greater than 22 weeks gestation, antepartum: Status: Acute Status at Discharge Cognitive/behavioral status at discharge: oriented Functional status at discharge: independent ambulation Overall status at discharge: patient is progressing back to baseline Time Spent with Patient Time attestation: Total time spent providing and/or coordinating discharge services: Time spent: Less than 30 minutes Objective Labs Result Diagrams: 07/15/21 18:45 Exam Vital Signs (past 8 hours): blood pressure 100/62, pulse of 80, temperature 36.4? Narrative Exam Narrative: Abdomen is soft, nontender. Uterus is firm, U -2, nontender. Mild lochia. Extremities without edema and nontender. She is Rh positive, rubella immune, she received Tdap in the 3rd trimester Discharge Plan Discharge Plan Patient Disposition: Home Discharge orders & Medications Prescriptions: Continued PNV no.120-olpa-hfsiw acid 28 mg iron- 800 mcg tablet 1 tab PO DAILY 0RF Discontinued metoclopramide HCl [Reglan] 10 mg tablet 10 mg PO Q6H PRN (Reason: nausea and vomiting) Qty: 10 0RF Follow up/Referrals: Juanita Gunter MD [Primary Care Provider] - As previously scheduled (Patient has an appointment 08/05/2021 in [place]) Diet/Activity/Treatments Diet: Regular Activity: nothing in vagina for 6 weeks Skin/Wound/Dressing Care Report to your healthcare provider any signs of infection, such as:: chills, fever and increased pain Discharge Data Primary Care Provider: Juanita Gunter
[2021-07-20 13:38] LABS: Dilute Russell Viper Venom 35.2 sec (0.0-47.0); Lupus Reflex Interpretation Comment: (.); PTT-LA 43.6 sec (0.0-51.9)
[2021-07-21 20:08] LABS: Cardiolipin Ab IgG <9 GPL U/mL (0-14); Cardiolipin Ab IgM 10 MPL U/mL (0-12)
== END 2021-07-17 09:00 | disposition home or self-care (01) | DRG 807 ==
PROVIDERS: Admitting Provider Specialist; PCP Specialist; Referring Provider Specialist; Visit Provider Specialist
DX: O36.4XX0 Maternal care for intrauterine death, not applicable or unspecified (principal); Z37.1 Single stillbirth; O77.0 Labor and delivery complicated by meconium in amniotic fluid; Z3A.35 35 weeks gestation of pregnancy; Z20.822 Contact with and (suspected) exposure to COVID-19
CPT/HCPCS: 01967; 36415; 59050; 59200; 59400; 85025; 85460; 85598; 85613; 86850; 86900; 86901; 87070; 87205; 87635; C9803; G0379; J0295; J2405; J2590; J3010

== ENCOUNTER → 2022-04-20 15:44 | Outpatient (CLI) | payer OTHER, SELFPAY ==
[2022-04-20 16:55] LABS: Add Manual Diff / Slide Review NO; Basophils Absolute Auto 0 /uL (0-100); Basophils Percent Auto 0.2 % (0-2); Eosinophils Absolute Auto 100 /uL (0-450); Eosinophils Percent Auto 0.6 % (2-4); Hemoglobin 12.6 g/dL (12.0-16.0); Lymphocytes Absolute Auto 2000 /uL (1100-4500); Lymphocytes Percent Auto 15.6 % (25-40); Mean Corpuscular Hemoglobin 29.6 PG (26-34); Mean Corpuscular Volume 84.6 fL (80-100); Monocytes Absolute Auto 600 /uL (0-900); Monocytes Percent Auto 4.5 % (3-14); Neutrophils Absolute Auto 10200 /uL (1500-7000); Neutrophils Percent Auto 79.1 % (50-75); Platelet Count 423 X10^3/uL (150-400); Red Blood Cell Count 4.25 X10^6/uL (4.0-5.2); Red Cell Distribution Width 12.8 % (11.6-14.8); White Blood Cell Count 12.9 X10^3/uL (4.5-11.0)
[2022-04-20 17:38] LABS: Hepatitis B Surface Antigen NEGATIVE s/c (NEGATIVE); Rubella Antibody IgG 22.3 IU/mL (>15)
[2022-04-20 17:54] LABS: HIV 1 & 2 Ab/Ag 4th Gen Combo NEGATIVE (NEGATIVE); Hep C Virus Ab w/Reflex Quant NEGATIVE s/c (NEGATIVE)
[2022-04-20 19:37] LABS: Appearance Urine UA CLEAR; Bilirubin Urine UA NEGATIVE (NEGATIVE); Color Urine UA YELLOW; Glucose Urine UA NEGATIVE (Negative); Ketones Urine UA 1+ (NEGATIVE); Leukocyte Esterase Urine UA NEGATIVE (NEGATIVE); Nitrite Urine UA NEGATIVE (Negative); Occult Blood Urine UA TRACE-LYSED (Negative); Protein Urine UA NEGATIVE (Negative); Specific Gravity Urine UA >=1.030 (1.000-1.035); Urobilinogen Urine UA 0.2 E.U./dL (0.2)
[2022-04-20 21:06] LABS: Urine N gonorrhoeae NOT DETECTED
[2022-04-20 21:11] LABS: Urine Chlamydia NOT DETECTED
[2022-04-21 08:11] LABS: RPR Screen Non Reactive (Non Reactive); Varicella IgG Antibody >4000 index (Immune >165)
== END ==
PROVIDERS: Referring Provider Obstetrics & Gynecology; Visit Provider Obstetrics & Gynecology
DX: Z34.81 Encounter for supervision of other normal pregnancy, first trimester (principal)
CPT/HCPCS: 36415; 80055; 81003; 86787; 86803; 86850; 86900; 86901; 87086; 87389; 87491; 87591

== ENCOUNTER → 2022-05-19 11:43 | Outpatient (CLI) | payer OTHER, SELFPAY ==
[2022-05-21 20:41] LABS: AFP Value 61.8 ng/mL (.); Gest Age on Col Date 16.4 weeks (.); Insulin Dep Diabetes No (.); OSBR Risk 1IN 1248 (.); Results Report (.); Test Results *Screen Negative* (.)
== END ==
PROVIDERS: Referring Provider Obstetrics & Gynecology; Visit Provider Obstetrics & Gynecology
DX: R31.9 Hematuria, unspecified (principal); Z34.82 Encounter for supervision of other normal pregnancy, second trimester; Z3A.16 16 weeks gestation of pregnancy
CPT/HCPCS: 36415; 82105; 87086; 87147